=== PATIENT | male | born 1950 | race Native Hawaiian/Other Pacific Islander ===

== ENCOUNTER 2022-02-25 15:19 | Emergency (ER) | payer OTHER ==
[~2022-02-25] VITALS: Ht 190.5 cm; Wt 80.3 kg
[2022-02-25 15:24] VITALS: BP 134/50; TEMP 97.5
[2022-02-25 15:47] LABS: POTASSIUM 3.1 mmol/L (3.6-5.2)
[2022-02-25 15:55] LABS: PLATELET COUNT 215 K/uL (142-355)
[2022-02-25] MEDS ORDERED: CARAFATE1 GM PO (20:55)
[2022-02-25] MEDS ORDERED: VITAMIN D1000 UNIT PO (20:59)
[2022-02-25] MEDS ORDERED: DONEPEZIL HYDRO10 M1 PO (20:59)
[2022-02-25] MEDS ORDERED: LIPITOR10 MG PO (21:00)
[2022-02-25] MEDS ORDERED: KP MELATONIN3 MG PO (21:00)
[2022-02-25] MEDS ORDERED: PROVERA5 MG PO (21:01)
[2022-02-25] MEDS ORDERED: QUETIAPINE25 MG PO (21:02)
== END 2022-02-25 17:02 | disposition still patient (30) ==
LOC: ED 15:19
PROVIDERS: Emergency Medicine
DX: F03.91 Unspecified dementia, unspecified severity, with behavioral disturbance (principal); Z91.83 Wandering in diseases classified elsewhere; R45.1 Restlessness and agitation; E87.6 Hypokalemia; Z11.52 Encounter for screening for COVID-19; Z04.6 Encounter for general psychiatric examination, requested by authority
CPT/HCPCS: 80053; 85027; 87635; 93005; 99283; U0003

== ENCOUNTER 2022-03-17 19:48 | Emergency (ER) | payer OTHER ==
[~2022-03-17] VITALS: Ht 190.5 cm; Wt 87.1 kg
[~2022-03-17 19:48] MED LIST: ATOR20TA2 PO; CARAFATE1 GM PO; DONEPEZIL HYDRO10 M1 PO; ESCI10TA PO; FURO20TA67 PO; KP MELATONIN3 MG PO; LIPITOR10 MG PO; PROVERA5 MG PO; QUET25TA2 PO; QUETIAPINE25 MG PO; SUCRALFATE1 GM PO; VITAMIN D1000 UNIT PO
[2022-03-17 20:53] LABS: PLATELET COUNT 205 K/uL (142-355)
[2022-03-17 21:02] LABS: POTASSIUM 3.7 mmol/L (3.6-5.2)
[2022-03-17 21:50] VITALS: BP 153/76; TEMP 98
[2022-03-17] MEDS ORDERED: SUCRALFATE1 GM PO (23:36)
== END 2022-03-17 21:50 | disposition still patient (30) ==
LOC: ED 19:48
PROVIDERS: Emergency Medicine Emergency Medical Services
DX: F03.91 Unspecified dementia, unspecified severity, with behavioral disturbance (principal); Z11.52 Encounter for screening for COVID-19; Z04.6 Encounter for general psychiatric examination, requested by authority
CPT/HCPCS: 36415; 80053; 85027; 87635; 93005; 99283; U0003